=== PATIENT | female | born 1950 | race African-American/Black ===

== ENCOUNTER 2022-01-06 13:45 | Emergency (ER) | payer MEDICARE, MEDICAID ==
[~2022-01-06] VITALS: Ht 144.8 cm; Wt 72.0 kg
[2022-01-06 19:29] LABS: BASOPHILS % 0.6 % (0.0-2.0); HEMATOCRIT. 40.5 % (36.0-48.0); HEMOGLOBIN. 13.9 g/dL (12.0-16.0); LYMPHOCYTES % 30.4 % (20.0-50.0); MEAN CORPUSCULAR HEMOGLOBIN 30.6 pg (28.0-32.0); MEAN CORPUSCULAR VOLUME 89.3 fL (81.0-99.0); MEAN PLATELET VOLUME 7.4 fl (7.4-10.4); MONOCYTES % 7.1 % (2.0-8.0); NEUTROPHILS % 59.9 % (40.0-76.0); PLATELET 275 x1000/uL (130-400); RED BLOOD CELL COUNT 4.54 mill/uL (4.2-5.4); RED CELL DISTRIBUTION WIDTH 13.7 % (11.6-14.6)
[2022-01-06 19:34] LABS: CHLORIDE 104 mEq/L (98-107)
[2022-01-06 19:37] LABS: PARTIAL THROMBOPLASTIN TIME 30.7 sec (23.4-31.0); PROTHROMBIN TIME 10.6 sec (9.6-11.0)
[2022-01-06] MEDS ORDERED: MECLIZINE 25MG TABLET PO ONE (23:45)
[2022-01-07 02:00] VITALS: BP 150/65
[2022-01-07] MEDS ORDERED: MECL-159 MT (02:28)
== END 2022-01-07 02:58 | disposition home or self-care (01) ==
LOC: ER 13:45
DX: R42 Dizziness and giddiness (principal); E11.9 Type 2 diabetes mellitus without complications; E78.00 Pure hypercholesterolemia, unspecified; I10 Essential (primary) hypertension
CPT/HCPCS: 36415; 70450; 71045; 80053; 82962; 83880; 84484; 85025; 85610; 85730; 93005; 99285; J8597

== ENCOUNTER 2023-11-28 23:33 | Emergency (ER) | payer MEDICARE, MEDICAID ==
[~2023-11-28] VITALS: Ht 160 cm; Wt 75.0 kg
[~2023-11-28 23:33] MED LIST: MECL-299 MT
[2023-11-29 00:14] VITALS: O2SAT 99
[2023-11-29 00:26] LABS: BASOPHILS % 0.4 % (0.0-2.0); EOSINOPHILS % 1.1 % (0.0-5.0); HEMATOCRIT. 32.3 % (36.0-48.0); HEMOGLOBIN. 11.5 g/dL (12.0-16.0); LYMPHOCYTES % 14.1 % (20.0-50.0); MEAN CORPUSCULAR HGB CONC 35.5 g/dL (31.0-37.0); MEAN CORPUSCULAR VOLUME 92.8 fL (81.0-99.0); MEAN PLATELET VOLUME 6.4 fl (7.4-10.4); MONOCYTES % 8.3 % (2.0-8.0); NEUTROPHILS % 76.1 % (40.0-76.0); PLATELET 432 x1000/uL (130-400); RED BLOOD CELL COUNT 3.48 mill/uL (4.2-5.4); RED CELL DISTRIBUTION WIDTH 13.7 % (11.6-14.6); WHITE BLOOD COUNT 10.1 x1000/uL (4.5-11.0)
[2023-11-29 00:29] LABS: CHLORIDE 101 mEq/L (98-107); POTASSIUM 4.1 mEq/L (3.5-5.1); SODIUM 133 mEq/L (136-145)
[2023-11-29 00:30] LABS: CARBON DIOXIDE 23 mEq/L (21-32)
[2023-11-29 00:31] LABS: CALCIUM 9.4 mg/dL (8.7-10.4)
[2023-11-29 00:35] LABS: CREATININE 0.8 mg/dL (0.6-1.0); GLUCOSE 84 mg/dL (70-105); UREA NITROGEN BLOOD 25 mg/dL (9-23)
[2023-11-29 00:37] LABS: ALANINE AMINOTRANSFERASE 29 IU/L (10-49); ALBUMIN 3.9 g/dL (3.2-4.8); ASPARTATE AMINOTRANSFERASE 37 IU/L (<34); BILIRUBIN DIRECT 0.2 mg/dL (<=3.0); TROPONIN I HIGH SENSITIVITY 7 ng/L (3.0-34)
[2023-11-29 00:38] LABS: BILIRUBIN TOTAL 0.5 mg/dL (0.1-1.0); PROTEIN TOTAL 7.1 g/dL (6.0-8.3)
[2023-11-29] MEDS: ACETAMINOPHEN 325MG TABLET PO NR (01:16)
[2023-11-29] MEDS ORDERED: ONDA4TAB50 MT (02:32)
[2023-11-29] MEDS ORDERED: ACET-2708 MT (02:32)
[2023-11-29] MEDS ORDERED: HYDR25SU37 RC (02:32)
[2023-11-29 02:40] VITALS: BP 148/60; PULSE 77; RESP 15; TEMP 98.7
== END 2023-11-29 02:44 | disposition home or self-care (01) ==
LOC: ER 23:39
DX: K62.89 Other specified diseases of anus and rectum (principal); K64.4 Residual hemorrhoidal skin tags
CPT/HCPCS: 36415; 80048; 80076; 82270; 84484; 85025; 93005; 99285